=== PATIENT | female | born 1990 | race Hispanic/Latino ===

== ENCOUNTER 2019-02-11 13:28 | Emergency (ER) | payer BC, OTHER | END 2019-02-11 15:24 | disposition home or self-care (01) | LOC: EDH 13:28 | DX: S13.8XXA Sprain of joints and ligaments of other parts of neck, initial encounter (principal); V49.49XA Driver injured in collision with other motor vehicles in traffic accident, initial encounter; Y93.89 Activity, other specified; Y92.410 Unspecified street and highway as the place of occurrence of the external cause; Y99.8 Other external cause status | CPT/HCPCS: 72040; 81025 ==

== ENCOUNTER 2024-12-06 21:06 | Emergency (ER) | payer SELFPAY ==
[~2024-12-06] VITALS: Ht 157.5 cm; Wt 86.2 kg
--- NOTE | 2024-12-06 21:12 | NUR ---
UA CUP PROVIDED
[2024-12-06] MEDS ORDERED: METH-811 PO (21:41)
[2024-12-06] MEDS ORDERED: LIDO700A30 TP (21:41)
[2024-12-06] MEDS ORDERED: KETO10TA2 PO (21:41)
--- NOTE | 2024-12-06 21:41 | ERN ---
ED Note History of Present Illness Stated Complaint: BACK AND LEG PAIN Chief Complaint: Lower Extremity Pain/Injury Time Seen by MD: 21:07 Time Seen by Midlevel: 21:10 Dictation: 34-YEAR-OLD FEMALE COMING IN COMPLAINING OF RIGHT LOWER BACK PAIN RADIATING TO THE RIGHT LEG ONSET SATURDAY. DENIES ANY TRAUMA, NO DYSURIA HEMATURIA, NO FEVER, NAUSEA OR VOMITING OR DIARRHEA. Allergies: Coded Allergies: No Known Allergies (Unverified Allergy, Unknown, 02/11/19) Past Medical History Past Medical History: No Pertinent History Surgical History: Cholecystectomy, LMP: Nov 15, 2024 Review of System Dictation CONSTITUTIONAL: NEGATIVE FOR FEVER,CHILLS, AND WEIGHT LOSS EYES: NEGATIVE FOR INJURY, PAIN,REDNESS, AND DISCHARGE ENT: NEGATIVE FOR INJURY,PAIN OR SWELLING CARDIOVASCULAR: NEGATIVE FOR CHEST PAIN, PALPITATIONS, AND EDEMA RESPIRATORY: NEGATIVE FOR SHORTNESS OF BREATH, COUGH, AND WHEEZING, ABDOMEN/GI: NEGATIVE FOR ABDOMINAL PAIN, NAUSEA, VOMITING, DIARRHEA, AND CONSTIPATION BACK: NEGATIVE FOR INJURY AND PAIN : NEGATIVE FOR INJURY, BLEEDING AND DISCHARGE MS/EXTREMITY: COMPLAINING OF RIGHT LOWER BACK PAIN RADIATING TO THE RIGHT LEG SKIN: NEGATIVE FOR RASH, AND DISCOLORATION NEURO: NEGATIVE FOR HEADACHE, WEAKNESS, NUMBNESS, TINGLING, AND SEIZURE PSYCH: NEGATIVE FOR SUICIDE IDEATION, HOMICIDAL IDEATION, AND HALLUCINATIONS Review of Systems: was completed Initial Vital Sign VS Vital Signs Date Time Temp Pulse Resp B/P (MAP) Pulse Ox O2 Delivery O2 Flow Rate FiO2 12/06/24 21:06 97.7 78 16 147/92 99 Room Air Physical Exam Dictation GENERAL: AWAKE, ALERT, NAD HEAD/FACE: NORMOCEPHALIC, ATRAUMATIC EYES: PERRL, EOMI, VISION AT BASELINE ENT: ORAL CAVITY CLEAR, TMS CLEAR, NO SIGNS OF INFECTION NECK: TRACHEA MIDLINE, SUPPLE, NO NUCHAL RIGIDITY CARDIOVASCULAR: RRR, NORMAL S1/S2, NO MRGS, NO JVD RESPIRATORY: CTAB, NO RESPIRATORY DISTRESS, NO RALES OR WHEEZES ABDOMEN: SOFT, NON-TENDER, NON-DISTENDED, NORMAL BOWEL SOUNDS, NO GUARDING OR REBOUND. SKIN: WARM, DRY, NORMAL TURGOR, NO RASH MS/EXTREMITY: PULSES EQUAL, NO CYANOSIS, NEUROVASCULAR INTACT, FROM PAIN ON PALPATION TO THE RIGHT LOWER BACK NO L-SPINE TENDERNESS NEURO: COAX4, GCS 15, STRENGTH 5/5, CN 2-12 INTACT, NORMAL CEREBELLAR EXAM, NORMAL GAIT, PSYCH: NORMAL BEHAVIOR, MOOD, AND AFFECT NORMAL ED Course ED Course Orders Procedure Category Date Status Time Ketorolac PHA 12/06/24 Logged Tromethamine 15mg/Ml 21:30 Lidocaine (Lidocaine PHA 12/06/24 Logged Patch 4%) 21:30 Current Medications Medications (Trade) Dose Ordered Sig/Rafael Route PRN Reason Start Time Stop Time Status Last Admin Dose Admin Ketorolac Tromethamine (toRADol) 15 mg ONCE STAT IM 12/06/24 21:30 12/06/24 21:36 DC Lidocaine (Lidocaine Patch 4%) 1 each ONCE ONCE TP 12/06/24 21:30 12/06/24 21:36 DC Vital Signs Date Time Temp Pulse Resp B/P (MAP) Pulse Ox O2 Delivery O2 Flow Rate FiO2 12/06/24 21:06 97.7 78 16 147/92 99 Room Air Medical Decision Making MDM MDM: 34-YEAR-OLD FEMALE COMING IN COMPLAINING OF RIGHT LOWER BACK PAIN RADIATING TO THE RIGHT LEG ONSET SATURDAY. DENIES ANY TRAUMA, NO DYSURIA HEMATURIA, NO FEVER, NAUSEA OR VOMITING OR DIARRHEA. ALSO DENIES ANY SADDLE PARESTHESIAS, INCONTINENCE, WEAKNESS, TINGLING, NUMBNESS. DISCUSSED WITH THE PATIENT'S MORE THAN LIKELY MUSCULOSKELETAL RELATED. WE WILL GIVE HER LIDOCAINE PATCH AND TORADOL, STATES THAT SHE IS DRIVING YOU CAN NOT GIVE HER ANY MUSCLE RELAXERS. HOWEVER TOLD PATIENT THAT I WILL PRESCRIBE HER MUSCLE RELAXER TO GO HOME WITH TO TAKE. DISCUSSED THAT SHE NEEDS TO FOLLOW UP WITH PCP IN 1-2 DAYS OR TO RETURN TO THE HOSPITAL SYMPTOMS WORSEN. PATIENT VERBALIZED UNDERSTANDING, ANSWERED ALL QUESTIONS. DIFFERENTIAL DIAGNOSIS: SCIATICA, MUSCULOSKELETAL PAIN, MUSCLE SPASM RATIONALE: TESTS CONSIDERED AND ORDERED SECONDARY TO SHARED DECISION MAKING INCLUDE: PREVIOUS OUTSIDE RECORDS REVIEWED: OLD ER VISITS. RISK OF COMPLICATION AND/OR MORBIDITY OR MORTALITY OF PATIENT MANAGEMENT: NONE MEDICATIONS-PER MEDICATION RECONCILIATION NEED FOR HOSPITALIZATION: PATIENT DOES NOT MEET CRITERIA FOR HOSPITALIZATION. NEED FOR EMERGENCY MAJOR/MINOR SURGERY: NO THERE ARE NO SOCIAL CONCERNS WITH THIS PATIENT. PRESCRIPTION DRUG MANAGEMENT PRESCRIPTIONS WILL INCLUDE SYMPTOMATIC CARE PATIENT'S PRIOR EXTERNAL MEDICAL RECORDS FROM OTHER ER VISITS WERE REVIEWED BY ME INDICATED. PRIOR TESTING AND RESULTS FROM PREVIOUS VISITS WERE REVIEWED. PRIOR TESTS WERE TAKEN INTO ACCOUNT WITH MEDICAL DECISION MAKING AND RESOURCE UTILIZATION, INDEPENDENT HISTORIAN/HISTORIANS WERE USED TO OBTAIN COMPLETE MEDICAL HISTORY. I INDEPENDENTLY INTERPRETED THE TEST THAT WERE PERFORMED, RESULTS WERE REVIEWED BY ME AND CONSIDERED FINDINGS ON RADIOLOGY IF ORDERED. MEDICAL MANAGEMENT AND EXAMINATION INTERPRETATION DISCUSSIONS WERE HAD BY ME WITH OTHER QUALIFIED HEALTHCARE PROFESSIONALS INDICATED FOR THE PATIENT'S CARE. DX & DISP Disposition: Discharge Departure Impression: Primary Impression: Lower back pain Condition: Stable Scripts Methocarbamol (Methocarbamol) 500 Mg Tablet 1 TAB PO TID PRN for PAIN for 7 Days, #21 TAB 0 Refills Prov: JUMANA DIAS NP 12/06/24 Ketorolac Tromethamine (Ketorolac Tromethamine) 10 Mg Tablet 1 TAB PO TID PRN for pain for 5 Days, #15 TAB 0 Refills Prov: JUMANA DIAS NP 12/06/24 Lidocaine (Lidocaine) 5 % Adh..patch 1 PATCH TP DAILY for 5 Days, #5 PATCH 0 Refills Prov: JUMANA DIAS NP 12/06/24 Referrals: SELF,REFERRAL (PCP) Time of Disposition: 21:38 I have reviewed the case, and I agree with, Diagnosis and Plan JUMANA DIAS NP December 06, 2024 21:41
[2024-12-06 21:49] VITALS: BP 147/92; PULSE 78; RESP 16; TEMP 97.7; O2SAT 99
[2024-12-06] MEDS: LIDOCAINE 4% ADH..PATCH TP ONE (21:54)
[2024-12-06] MEDS: ketOROlac 15MG/ML VIAL (15MG/ML) IM STA (21:54)
== END 2024-12-06 22:09 | disposition home or self-care (01) ==
LOC: EDH 21:06
DX: M54.50 Low back pain, unspecified (principal); Z90.49 Acquired absence of other specified parts of digestive tract; Z98.890 Other specified postprocedural states
CPT/HCPCS: 99283; 96372; J1885